=== PATIENT | male | born 1995 | race Caucasian/White ===

== ENCOUNTER 2017-03-18 16:35 | Observation (INO) | payer BC ==
[2017-03-18 18:13] LABS: Hematocrit 39 % (42-52); Hemoglobin 12.9 g/dl (14.0-18.0); Mean Corpuscular HGB Conc 33 g/dl (31-36); Mean Corpuscular Hemoglobin 29 pg (27-31); Mean Corpuscular Volume 89 fL (80-94); Mean Platelet Volume 7 um3 (7.4-10.4); Red Blood Count 4.42 10^6/ul (4.0-5.4); Red Cell Distribution Width 15 % (10.5-15); White Blood Count 12.4 10^3/ul (3.5-10.8)
[2017-03-18] MEDS ORDERED: Ondansetron INJ* 2 MG/ML VIAL IV PRN (18:16)
[2017-03-18] MEDS ORDERED: Morphine INJ* 2 MG/ML 1 ML CARPUJECT IV ONE ×2 (18:16→19:42)
[2017-03-18 18:17] LABS: Comments Flag Yes
[2017-03-18 18:18] LABS: Add Diff/Slide Review? Slide Review Added
[2017-03-18 18:25] LABS: Albumin 3.7 g/dL (3.2-5.2); C Reactive Protein 56.16 mg/L (< 5.00); Calcium 9.3 mg/dL (8.6-10.3); EGFR Non-African American 129.1 (>60); Globulin 3.6 g/dL (2-4); Potassium 3.6 mmol/L (3.5-5.0); Total Bilirubin 0.4 mg/dL (0.2-1.0); Total Protein 7.3 g/dL (6.4-8.9); Uric Acid 4.4 mg/dL (4.4-7.6)
--- NOTE | 2017-03-18 19:14 | RAD ---
INDICATION: Right knee swelling and history of rheumatoid arthritis. TECHNIQUE: 4 views of the right knee were obtained. FINDINGS: There is a large joint effusion present. No significant focal osseous abnormality or fracture is seen. Joint spaces appear maintained. IMPRESSION: LARGE JOINT EFFUSION.
[2017-03-18 19:26] LABS: Erythrocyte Sed Rate 46 mm/Hr (0-14)
[2017-03-18] MEDS ORDERED: Lidocaine 2.5%/Prilocain 2.5%* 5 GM TUBE TOPICAL ONE (20:29)
[2017-03-18] MEDS ORDERED: Acetaminophen TAB* 325 MG PO PRN (21:38)
[2017-03-18] MEDS ORDERED: Ketorolac INJ* 15 MG/ML 1 ML VIAL IV PRN (21:39)
[2017-03-18] MEDS ORDERED: CMCS: Melatonin (NF) 3 MG TAB PO PRN (21:39)
[2017-03-18] MEDS ORDERED: NS 0.9% 1000 ML* 1,000 ML IV SCH (21:45)
--- NOTE | 2017-03-19 00:08 | ED ---
Lower Extremity - HPI Summary HPI Summary: 21 y/o male referred to ER by Dr. Loredo due to R knee pain, swelling. patient has h/o RA with multiple flare ups in past, noted ~ 3 weeks ago to have eR knee flare up of typical RA, patient was changed to Ollie from Remicade ~ 2 weeks ago due to dx'd with crohns. patient has had 2 infusions, noted to have R knee swelling/ pain after first infusion ~ 2weeks ago, was placed on prednisone taper as well. Pain/ swelling decreased slightly, however has increased after recent ollie. Patient was seen by DR. Loredo, sent to ED for eval to r/o septic joint. No fever, chills. patient with extreme pain with bending right knee, pain now extending up into R hip region. full ROM R ankle. senation intact. - History of Current Complaint Chief Complaint: EDExtremityLower Stated Complaint: RT LEG PAIN/SWELLING Time Seen by Provider: 03/18/17 16:53 Hx Obtained From: Patient Onset of Pain: Days Onset/Duration: Still Present Severity Initially: Moderate Severity Currently: Severe Pain Intensity: 4 Pain Scale Used: 0-10 Numeric - Allergies/Home Medications Allergies/Adverse Reactions: Allergies Allergy/AdvReac Type Severity Reaction Status Date / Time No Known Allergies Allergy Verified 10/29/14 11:49 Home Medications: Home Medications Prednisone 5 mg PO BID 03/18/17 [History Confirmed 03/18/17] PMH/Surg Hx/FS Hx/Imm Hx Previously Healthy: No - RA, crohns, Musculoskeletal History: Reports: Hx Arthritis Sensory History: Reports: Hx Contacts or Glasses - WEARS GLASSES Opthamlomology History: Reports: Hx Contacts or Glasses - WEARS GLASSES Infectious Disease History: No Infectious Disease History: Denies: Traveled Outside the [place] in Last 30 Days - Social History Alcohol Use: None Substance Use Type: Reports: None Smoking Status (MU): Never Smoked Tobacco Have You Smoked in the Last Year: No Review of Systems Constitutional: Negative Positive: Arthralgia, Myalgia, Decreased ROM, Edema All Other Systems Reviewed And Are Negative: Yes Physical Exam Triage Information Reviewed: Yes Vital Signs On Initial Exam: Initial Vitals Temp Pulse Resp BP Pulse Ox 99.3 F 101 20 108/57 100 03/18/17 16:37 03/18/17 16:37 03/18/17 16:37 03/18/17 16:37 03/18/17 16:37 Vital Signs Reviewed: Yes Appearance: Positive: Well-Appearing, Pain Distress - mild at rest, severe with movement R knee Skin: Positive: Warm, Skin Color Reflects Adequate Perfusion Head/Face: Positive: Normal Head/Face Inspection Respiratory/Lung Sounds: Positive: Clear to Auscultation, Breath Sounds Present Cardiovascular: Positive: Normal, RRR, Pulses are Symmetrical in both Upper and Lower Extremities - PT, DP 2+ b/l Musculoskeletal: Positive: Edema Right, Other - decreased movement due to pain in R knee, + tenderness with log roll in R hip radiating to R knee, + moderate effusion anteriorly,. Negative: Rene Sign Left, Rene Sign Right Neurological: Positive: Normal, Sensory/Motor Intact, Alert, Oriented to Person Place, Time, CN Intact II-III, Facial Symmetry, Speech Normal Psychiatric: Positive: Normal AVPU Assessment: Alert - Herrin Coma Scale Coma Scale Total: 15 Diagnostics - Vital Signs Vital Signs Temp Pulse Resp BP Pulse Ox 03/18/17 21:00 113/68 03/18/17 20:30 95 106/59 95 03/18/17 20:01 97 111/67 97 03/18/17 20:00 96 97 03/18/17 19:58 14 03/18/17 19:55 95 115/72 97 03/18/17 19:19 20 03/18/17 19:05 188 98 03/18/17 18:30 99 115/70 99 03/18/17 18:00 91 118/54 100 03/18/17 17:35 90 98 03/18/17 17:33 115/70 03/18/17 16:37 99.3 F 101 20 108/57 100 - Laboratory Lab Results: Lab Results 03/18/17 03/18/17 03/18/17 Range/Units 17:54 17:54 17:54 WBC 12.4 H (3.5-10.8) 10^3/ul RBC 4.42 (4.0-5.4) 10^6/ul Hgb 12.9 L (14.0-18.0) g/dl Hct 39 L (42-52) % MCV 89 (80-94) fL MCH 29 (27-31) pg MCHC 33 (31-36) g/dl RDW 15 (10.5-15) % Plt Count 305 (150-450) 10^3/ul MPV 7 L (7.4-10.4) um3 Neut % (Auto) 75.5 (38-83) % Lymph % (Auto) 11.2 L (25-47) % [place] % (Auto) 13.0 H (1-9) % Eos % (Auto) 0.1 (0-6) % Baso % (Auto) 0.2 (0-2) % Absolute Neuts (auto) 9.4 H (1.5-7.7) 10^3/ul Absolute Lymphs (auto) 1.4 (1.0-4.8) 10^3/ul Absolute Monos (auto) 1.6 H (0-0.8) 10^3/ul Absolute Eos (auto) 0 (0-0.6) 10^3/ul Absolute Basos (auto) 0 (0-0.2) 10^3/ul Absolute Nucleated RBC 0 10^3/ul Nucleated RBC % 0 ESR 46 H (0-14) mm/Hr Sodium 134 (133-145) mmol/L Potassium 3.6 (3.5-5.0) mmol/L Chloride 100 L (101-111) mmol/L Carbon Dioxide 28 (22-32) mmol/L Anion Gap 6 (2-11) mmol/L BUN 12 (6-24) mg/dL Creatinine 0.75 (0.67-1.17) mg/dL Est GFR ( Amer) 166.0 (>60) Est GFR (Non-Af Amer) 129.1 (>60) BUN/Creatinine Ratio 16.0 (8-20) Glucose 95 (70-100) mg/dL Lactic Acid 0.9 (0.5-2.0) mmol/L Uric Acid 4.4 (4.4-7.6) mg/dL Calcium 9.3 (8.6-10.3) mg/dL Total Bilirubin 0.40 (0.2-1.0) mg/dL AST 12 L (13-39) U/L ALT 21 (7-52) U/L Alkaline Phosphatase 51 (34-104) U/L C-Reactive Protein 56.16 H (< 5.00) mg/L Total Protein 7.3 (6.4-8.9) g/dL Albumin 3.7 (3.2-5.2) g/dL Globulin 3.6 (2-4) g/dL Albumin/Globulin Ratio 1.0 (1-3) Result Diagrams: 03/18/17 17:54 03/18/17 17:54 Lab Statement: Any lab studies that have been ordered have been reviewed, and results considered in the medical decision making process. Lower Extremity Course/Dx - Course Course Of Treatment: attempted to contact DR. Loredo, unable to reach, due to patients pain, immunocompromised status, swelling, admit for obs overnight. Hospitalist consulted. - Diagnoses Differential Diagnosis/HQI/PQRI: Positive: Bursitis, Cellulitis Provider Diagnoses: Knee effusion, right Discharge - Discharge Plan Condition: Stable Disposition: ADMITTED TO [facility]
[2017-03-19] MEDS: HYDROmorphone INJ* 1 MG/ML CARPUJECT SYRINGE IV PRN ×4 (01:07→10:27)
[2017-03-19] MEDS: oxyCODONE TAB* 5 MG TAB PO PRN ×3 (02:53→12:11)
--- NOTE | 2017-03-19 03:00 | HP ---
H&P (Free Text) History and Physical: PCP: MD Dianna Sands PA Rheumatology: Lyn Torres NP Date/Time: 03/18/20172129 CC: R knee pain & swelling HPI: Mr Wilkins is a 21YO male HX RA w/ multiple flairs & Crohn's who began having a flair of his RA ~2 weeks ago involving the R knee. He was on infliximab which was changed to adalimumab ~10days ago by his Federal Agent and placed on a prednisone taper. He reports being compliant with treatment. There was initial improvement, but now subsequent worsening with radiation proximally towards the hip. He reports subjective chills, but no fevers or sweats. As such, Dr Loredo's office referred him to [facility] ED for evaluation of possible septic joint. 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; full code status FamHx: Mother: healthy; Father: healthy; no siblings ROS: as above, otherwise reviewed and all were negative vitals: Vital Signs Temp 36.7 C 03/19/17 01:00 Pulse 89 03/19/17 01:00 Resp 14 03/19/17 02:07 BP 110/59 03/19/17 01:00 Pulse Ox 98 03/19/17 01:00 Intake & Output 03/18/17 03/18/17 03/19/17 11:59 23:59 11:59 Weight 56.245 kg 54.34 kg Other: Estimated Void Large # Voids 1 Constitutional: NAD, normally developed, well-nourished white male HEENM: atraumatic; sclera/conjunctiva: anicteric/clear; hearing: clinically intact; oropharynx: clear, mucosa moist Neck: soft tissue: non-tender; thyroid: normal Pulmonary: clear to auscultation bilaterally, good aeration, no accessory muscle use CV: RR/RR, normal S1S2, no carotid bruit, no jugular venous distention, 2+ B DP/ PT, no edema Abdominal: soft, non-distended, non-tender, no rebound/guarding/rigidity, normoactive bowel sounds, no hepatosplenomegaly or masses, no costovertebral angle tenderness Musculoskeletal: general: R knee swollen and tender with marked pain upon active or passive ROM, s/p aspiration Integumental: normal appearance and texture of exposed skin Psychiatric orientation: AA&O to PPS affect: calm mood: cooperative eye contact: good content: reliable responses: timely insight: good Testing: Lab Results 03/18/17 03/18/17 03/18/17 Range/Units 17:54 17:54 17:54 WBC 12.4 H (3.5-10.8) 10^3/ul RBC 4.42 (4.0-5.4) 10^6/ul Hgb 12.9 L (14.0-18.0) g/dl Hct 39 L (42-52) % MCV 89 (80-94) fL MCH 29 (27-31) pg MCHC 33 (31-36) g/dl RDW 15 (10.5-15) % Plt Count 305 (150-450) 10^3/ul MPV 7 L (7.4-10.4) um3 Neut % (Auto) 75.5 (38-83) % Lymph % (Auto) 11.2 L (25-47) % [place]enson % (Auto) 13.0 H (1-9) % Eos % (Auto) 0.1 (0-6) % Baso % (Auto) 0.2 (0-2) % Absolute Neuts (auto) 9.4 H (1.5-7.7) 10^3/ul Absolute Lymphs (auto) 1.4 (1.0-4.8) 10^3/ul Absolute Monos (auto) 1.6 H (0-0.8) 10^3/ul Absolute Eos (auto) 0 (0-0.6) 10^3/ul Absolute Basos (auto) 0 (0-0.2) 10^3/ul Absolute Nucleated RBC 0 10^3/ul Nucleated RBC % 0 ESR 46 H (0-14) mm/Hr Sodium 134 (133-145) mmol/L Potassium 3.6 (3.5-5.0) mmol/L Chloride 100 L (101-111) mmol/L Carbon Dioxide 28 (22-32) mmol/L Anion Gap 6 (2-11) mmol/L BUN 12 (6-24) mg/dL Creatinine 0.75 (0.67-1.17) mg/dL Est GFR ( Amer) 166.0 (>60) Est GFR (Non-Af Amer) 129.1 (>60) BUN/Creatinine Ratio 16.0 (8-20) Glucose 95 (70-100) mg/dL Lactic Acid 0.9 (0.5-2.0) mmol/L Uric Acid 4.4 (4.4-7.6) mg/dL Calcium 9.3 (8.6-10.3) mg/dL Total Bilirubin 0.40 (0.2-1.0) mg/dL AST 12 L (13-39) U/L ALT 21 (7-52) U/L Alkaline Phosphatase 51 (34-104) U/L C-Reactive Protein 56.16 H (< 5.00) mg/L Total Protein 7.3 (6.4-8.9) g/dL Albumin 3.7 (3.2-5.2) g/dL Globulin 3.6 (2-4) g/dL Albumin/Globulin Ratio 1.0 (1-3) XRY R knee, personally reviewed: IMPRESSION: LARGE JOINT EFFUSION. Impression: 21M presenting with R knee pain, likely RA flair but concern held for septic joint given his immunocompromised status from adalimumab/prednisone DIAGNOSIS & PLAN Primary R knee pain, RA flair vs septic joint : joint aspirate & blood CXs : monitor fever, WBC, & BP curves (mild leukocytosis likely 2nd prednisone) : pain control : consider orthopedic consult in AM pending overnight course : supportive care Secondary Crohn's : no acute issues Admission Rational: observation for evaluation of potential joint infection DVTp: ambulation Code Status: full
[2017-03-19] MEDS ORDERED: Omeprazole CAP* 20 MG PO SCH (06:00)
[2017-03-19 07:08] LABS: Hematocrit 38 % (42-52); Hemoglobin 12.8 g/dl (14.0-18.0); Mean Corpuscular HGB Conc 33 g/dl (31-36); Mean Corpuscular Hemoglobin 30 pg (27-31); Mean Corpuscular Volume 89 fL (80-94); Mean Platelet Volume 7 um3 (7.4-10.4); Red Blood Count 4.29 10^6/ul (4.0-5.4); Red Cell Distribution Width 15 % (10.5-15); White Blood Count 9.4 10^3/ul (3.5-10.8)
[2017-03-19 07:11] LABS: Comments Flag Yes
[2017-03-19] MEDS: Ondansetron INJ* 2 MG/ML VIAL IV PRN ×2 (08:31→14:34)
[2017-03-19] MEDS ORDERED: Prenatal Vitamin TAB PO SCH (09:00)
[2017-03-19] MEDS ORDERED: predniSONE TAB* 5 MG PO SCH (09:00)
[2017-03-19 10:35] LABS: Erythrocyte Sed Rate 40 mm/Hr (0-14)
--- NOTE | 2017-03-19 11:55 | CONS ---
CONSULTATION NOTE: DATE OF CONSULT: 03/19/17 CHIEF COMPLAINT: Right knee pain and swelling. HISTORY OF PRESENT ILLNESS: Ulises is a 21-year-old male with a history of rheumatoid arthritis diagnosed in 2007. He had been on Remicade. It stopped working. He has also been on methotrexate a couple of weeks ago. He had a flare of his arthritis and was started on some Humira. He in the last couple of days had a marked increase in his right knee pain and swelling and was admitted to the hospital last night. Attempted aspiration in the emergency department yielded a negative Gram stain with positive neutrophils, but no organisms, MRSA and Staph aureus negative. PHYSICAL EXAM: On examination, he is an otherwise healthy appearing male in mild distress at rest. He ambulates with the aid of crutches and a significant limp. He has a very large right knee effusion. His knee range of motion is painful. There is no erythema. His neurovascular function is intact. He does have full knee extension. DIAGNOSTIC STUDIES/LAB DATA: I reviewed his x-ray, AP, lateral, oblique of the right knee, which shows a large knee effusion. IMPRESSION: Rule out septic arthritis of the right knee. PLAN/RECOMMENDATIONS: After time-out was performed and the skin was numbed with 3 cc of 1% plain lidocaine, an 18-gauge needle was used to aspirate 100 mL of clear fluid from the suprapatellar pouch. The patient tolerated this well. Was dressed with a Band-Aid. I do not think that this represents a septic arthritis. I spoke to Dr. Lebron and she will consider increasing his prednisone to treat the rheumatoid flare. I will see him back in followup as needed. [id number]/[facility] #: [id number] [facility]
[2017-03-19 13:57] LABS: Body Fluid Appearance Cloudy
[2017-03-19 14:03] LABS: Body Fluid WBC 6888 /mcL
[2017-03-19 14:25] LABS: Body Fluid Total Cells Counted 100
[2017-03-19 17:02] VITALS: BP 108/66
--- NOTE | 2017-03-20 00:29 | DS ---
CC: Dr. Levy; ESTER Marques * DISCHARGE SUMMARY: DATE OF ADMISSION: 03/18/17 DATE OF DISCHARGE: 03/19/17 PRIMARY CARE PROVIDER: [facility]. DISCHARGE DIAGNOSIS: Right knee effusion appears to be due to reactive inflammatory changes due to rheumatoid arthritis with cultures pending at the time of dictation. SECONDARY DIAGNOSES: 1. History of rheumatoid arthritis. 2. History of Crohn's. MEDICATIONS AT DISCHARGE: Include: 1. Folic acid 400 mcg daily. 2. Multivitamin 1 tablet daily. 3. Prednisone with increased dose from 10 mg daily to 40 mg daily until seen by Lyn Torres for further recommendations. LABORATORY DATA/STUDIES PERFORMED DURING THE HOSPITAL STAY: Included: On 03/19, white blood cell count of 9.4, hemoglobin of 12.8, hematocrit of 38, and platelets of 269,000. ESR of 40. The patient's C-reactive protein was 65. Right knee synovial fluid result showed cloudy fluid with white blood cell count of 6888, red blood cells of 568, total neutrophils of 69%, monocytes 22, lymphocytes 9. There were no crystals seen. The Gram stain was negative for any organisms. It showed +2 neutrophils. CONSULTATION DURING THE HOSPITAL STAY: Included Dr. Levy from Orthopedic Surgery. HOSPITALIZATION COURSE: Ulises Wilkins is a 21-year-old male with history of rheumatoid arthritis and Crohn's with recent flare of his chronic medical conditions and was placed on Humira and prednisone. He noted that his right knee that had always bothered him had gotten swollen for the past 3 days when he came into the ED for evaluation to rule out septic arthritis. The knee was aspirated in the emergency department and was re-aspirated by Dr. Levy the day after and showed nearly 7000 white blood cells. No crystals and no organisms on Gram stain. Dr. Levy saw the patient in consultation and thought that the effusion is less likely due to septic knee and more likely due to rheumatoid arthritis. The patient was okayed to be discharged home. Recommendation to follow up with Lyn Torres within the next week. Due to likely rheumatoid arthritis flare, his prednisone was increased from 10 to 40 mg daily. PHYSICAL EXAMINATION: At the time of discharge, blood pressure of 101/49, heart rate of 100 and regular, respiratory rate 16, oxygen saturation 99% on room air, and temperature of 97.9. General: The patient is a pleasant 21-year- old male, thin body habitus. The patient is not in any acute distress. Alert, awake and oriented x3. HEENT: Head: Atraumatic, normocephalic. Eyes: Pupils are equal, reactive to light and accommodation. Oropharynx is clear. Mucosa moist. Neck: Supple. No JVD. No bruits bilaterally. Cardiovascular: Regular rate and rhythm. No murmur. Respiratory: Clear to auscultation bilaterally. Abdomen: Soft, nontender. Bowel sounds present in all 4 quadrants. Extremities: There is no pedal edema. The right knee has still rather significant effusion present. There is no erythema on the skin surrounding the right knee. The knee is mildly tender to palpation. There is no limitation of range of motion. Neuro Evaluation: Speech clear. Cranial nerves II through XII grossly intact. Motor strength is 5/5 bilaterally. The patient is going to be discharged home. Recommendation to follow up with Lyn Torres in approximately 4 to 7 days. [id number]/[facility] #: [id number] [facility]
[2017-03-21 13:48] LABS: Rheumatoid Factor <15 IU/mL (<15)
[2017-03-21 15:46] LABS: Cyclic Citrullinated Pept IgG <15.6 U
== END 2017-03-19 17:00 | disposition home or self-care (01) ==
LOC: ED 16:35 → MED 21:29
PROVIDERS: ADMIT Hospitalist; ATTEND Internal Medicine
DX: M06.9 Rheumatoid arthritis, unspecified (principal); M25.461 Effusion, right knee; K50.90 Crohn's disease, unspecified, without complications
CPT/HCPCS: 36415; 80053; 83605; 84550; 85025; 85652; 86140; 86200; 86431; 87040; 87070; 87205; 87640; 87641; 89051; 89060; 96374; 96375; 99283; A9270-GY; G0378; J1170; J2270; J2405; J7512